=== PATIENT | male | born 1995 | race Caucasian/White ===

== ENCOUNTER 2018-02-09 15:37 | Emergency (ER) | payer OTHER ==
[2018-02-09 18:39] LABS: BUN Blood Urea Nitrogen 13 mg/dL (7-18); Bicarbonate 32 mmol/L (21-32); Glucose Level 90 mg/dL (74-106); Potassium 3.6 mmol/L (3.5-5.1); Sodium Level 139 mmol/L (136-145)
[2018-02-09] MEDS ORDERED: DEXAMETHASONE 10 MG/ML VIAL ONE (18:43)
--- NOTE | 2018-02-09 19:16 | RAD REPORT ---
EXAM DESCRIPTION: CT - Soft Tissue Neck W/Contr CLINICAL HISTORY: peritonsillar abscess Pain and swelling COMPARISON: None TECHNIQUE All CT scans are performed using dose optimization technique as appropriate and may includ e automated exposure control or mA/KV adjustment according to patient size. FINDINGS: Nasopharyngeal tissues are normal in appearance. Fossa Rosenmller are normal. Parapharyngeal fat triangles are symmetric. Both palatine tonsils appear prominent in size, greater o n the right. A peritonsillar abscess is not identified. Epiglottis and aryepiglottic folds are normal. The left piriform sinus appears under aerated. The vocal cords are normal in appearance. Salivary glands are normal in appearance. Several mildly prominent jugular chain lymph nodes are present and posterior triangle lymph nodes are present, suspected to be reactive in nature. Mild polypoid mucosal thickening of both maxillary antr a seen. IMPRESSION: Significant enlargement of the palatine tonsils is present, greater on the right. A lu tonsillar abscess is not seen.
--- NOTE | 2018-02-09 19:30 | EDPHYS ---
Physician Documentation [facility] Name: Rashaun Posey Age: 22 yrs Sex: Male : 1995 Arrival Date: 02/09/2018 Time: 15:40 Bed 20 Private MD: None, None ED Physician Saturnino Aguayo HPI: 02/09 17:00 This 22 yrs old Male presents to ER via Ambulatory with complaints of Sore pm1 Throat. 17:00 The patient presents with sore throat. The patient describes throat pain as constant. pm1 Onset: The symptoms/episode began/occurred this morning. Severity of symptoms: in the emergency department the symptoms are actually worse. Modifying factors: The symptoms are alleviated by nothing, the symptoms are aggravated by swallowing, Patient's oral intake status: good unaware of sick contact. Associated signs and symptoms: Pertinent positives: fever, Pertinent negatives cough. Historical: - Allergies: 16:00 NKA; iw - Home Meds: 16:00 None [Active]; iw - PMHx: 16:00 None; iw - PSHx: 16:00 Appendectomy; iw - Immunization history:: Adult Immunizations not up to date. - Social history:: Smoking status: Patient/guardian denies using tobacco. - Ebola Screening: : Patient negative for fever greater than or equal to 101.5 degrees Fahrenheit, and additional compatible Ebola Virus Disease symptoms Patient denies exposure to infectious person Patient denies travel to an Ebola-affected area in the 21 days before illness onset No symptoms or risks identified at this time. ROS: 17:00 Eyes: Negative for injury, pain, redness, and discharge. pm1 17:00 Neck: Negative for injury, pain, and swelling, Cardiovascular: Negative for chest pain, palpitations, and edema, Respiratory: Negative for shortness of breath, cough, wheezing, and pleuritic chest pain, Abdomen/GI: Negative for abdominal pain, nausea, vomiting, diarrhea, and constipation, Back: Negative for injury and pain, : Negative for injury, bleeding, discharge, and swelling, MS/Extremity: Negative for injury and deformity, Skin: Negative for injury, rash, and discoloration, Neuro: Negative for headache, weakness, numbness, tingling, and seizure. 17:00 Constitutional: Positive for fever, Negative for poor PO intake. 17:00 ENT: Positive for sore throat, Negative for ear pain, difficulty swallowing, difficulty handling secretions. Exam: 17:00 Constitutional: This is a well developed, well nourished patient who is awake, alert, pm1 and in no acute distress. Head/Face: Normocephalic, atraumatic. Eyes: Pupils equal round and reactive to light, extra-ocular motions intact. Lids and lashes normal. Conjunctiva and sclera are non-icteric and not injected. Cornea within normal limits. Periorbital areas with no swelling, redness, or edema. 17:00 Neck: Trachea midline, no thyromegaly or masses palpated, and no cervical lymphadenopathy. Supple, full range of motion without nuchal rigidity, or vertebral point tenderness. No Meningismus. Chest/axilla: Normal chest wall appearance and motion. Nontender with no deformity. No lesions are appreciated. Cardiovascular: Regular rate and rhythm with a normal S1 and S2. No gallops, murmurs, or rubs. Normal PMI, no JVD. No pulse deficits. Respiratory: Lungs have equal breath sounds bilaterally, clear to auscultation and percussion. No rales, rhonchi or wheezes noted. No increased work of breathing, no retractions or nasal flaring. Abdomen/GI: Soft, non-tender, with normal bowel sounds. No distension or tympany. No guarding or rebound. No evidence of tenderness throughout. Back: No spinal tenderness. No costovertebral tenderness. Full range of motion. Skin: Warm, dry with normal turgor. Normal color with no rashes, no lesions, and no evidence of cellulitis. MS/ Extremity: Pulses equal, no cyanosis. Neurovascular intact. Full, normal range of motion. 17:00 ENT: External ear(s): are unremarkable, Ear canal(s): are normal, TM's: are normal, Nose: is normal, Mouth: is normal, Posterior pharynx: Airway: normal, no evidence of obstruction, patent, Tonsils: bilaterally enlarged, with erythema, no exudate, no ulcerations, peritonsillar mass, is not appreciated, pooling of secretions, is not appreciated. 17:00 Neuro: Orientation: is normal, Motor: is normal, Sensation: is normal, Gait: is steady, at a normal pace, without difficulty. Vital Signs: 16:00 BP 159 / 90; Pulse 106; Resp 18; Temp 99.3(TE); Pulse Ox 98% on R/A; Weight 119.29 kg; iw Height 5 ft. 9 in. (175.26 cm); Pain 6/10; 18:45 BP 138 / 78; Pulse 87; Resp 18; Pulse Ox 99% on R/A; mh5 19:45 BP 132 / 76; Pulse 102; Resp 16; Temp 99.2(O); Pulse Ox 100% on R/A; bs1 20:20 BP 125 / 86; Pulse 93; Resp 16; Temp 99.2(O); Pulse Ox 99% on R/A; bs1 16:00 Body Mass Index 38.84 (119.29 kg, 175.26 cm) iw MDM: 17:33 Patient medically screened. pm1 19:29 Data reviewed: vital signs. Data interpreted: Pulse oximetry: on room air is 99 %. pm1 Interpretation: normal. Counseling: I had a detailed discussion with the patient and/or guardian regarding: the historical points, exam findings, and any diagnostic results supporting the discharge/admit diagnosis. 19:30 ED course: improvement of symptoms with decadron given. pm1 02/09 17:36 Order name: BMP; Complete Time: 18:47 pm1 02/09 19:29 Order name: Strep; Complete Time: 22:39 pm1 02/09 16:05 Order name: CT Soft Tissue Neck W/contr; Complete Time: 19:17 snw 02/09 20:32 Order name: Throat Culture EDAZ 02/09 17:36 Order name: IV Saline Lock; Complete Time: 18:23 pm1 Administered Medications: 18:40 Drug: Decadron - Dexamethasone 10 mg Route: IVP; Site: right antecubital; iw 19:54 Follow up: Response: No adverse reaction bs1 19:44 Drug: Bicillin L-A 1.2 million units Route: IM; Site: right gluteus; bs1 19:54 Follow up: Response: No adverse reaction bs1 Disposition: 02/10 15:18 Co-signature as Attending Physician, Saturnino Aguayo MD I agree with the assessment and kdr plan of care. Disposition: 02/09/18 19:29 Discharged to Home. Impression: Acute pharyngitis. - Condition is Stable. - Discharge Instructions: Pharyngitis, Salt Water Gargle. - Medication Reconciliation Form, Thank You Letter, Antibiotic Education form. - Follow up: Emergency Department; When: As needed; Reason: Worsening of condition. Follow up: Private Physician; When: 2 - 3 days; Reason: Recheck today's complaints, Continuance of care, Re-evaluation by your physician. - Problem is new. - Symptoms have improved. Signatures: Dispatcher [employer] EDMS Saturnino Aguayo MD MD [facility] Adelina Coffman RN RN iw Sai Lazar NP CUSTOMER SERVICE DISPATCHER pm1 Gillian Posadas RN RN bs1 Corrections: (The following items were deleted from the chart) 02/09 20:53 19:29 02/09/2018 19:29 Discharged to Home. Impression: Acute pharyngitis. Condition is bs1 Stable. Forms are Medication Reconciliation Form, Thank You Letter, Antibiotic Education, Prescription Opioid Use. Follow up: Emergency Department; When: As needed; Reason: Worsening of condition. Follow up: Private Physician; When: 2 - 3 days; Reason: Recheck today's complaints, Continuance of care, Re-evaluation by your physician. Problem is new. Symptoms have improved. pm1
--- NOTE | 2018-02-09 19:30 | ER ---
Nurse's Notes [facility] Name: Rashaun Posey Age: 22 yrs Sex: Male : 1995 Arrival Date: 02/09/2018 Time: 15:40 Bed 20 Private MD: None, None Diagnosis: Acute pharyngitis Presentation: 02/09 15:57 Presenting complaint: Patient states: throat is swollen on right side, getting hard to iw swallow, started this morning, feels fatigued, denies n/v/d, strep was negative today at [facility],sent yo ER for possible peritonsillar abscess. Transition of care: patient was not received from another setting of care. Onset of symptoms was February 09, 2018. Risk Assessment: Do you want to hurt yourself or someone else? Patient reports no desire to harm self or others. Initial Sepsis Screen: Does the patient meet any 2 criteria? No. Patient's initial sepsis screen is negative. Does the patient have a suspected source of infection? No. Patient's initial sepsis screen is negative. Care prior to arrival: None. 15:57 Method Of Arrival: Ambulatory 15:57 Acuity: YANCY 4 iw Historical: - Allergies: 16:00 NKA; iw - Home Meds: 16:00 None [Active]; iw - PMHx: 16:00 None; iw - PSHx: 16:00 Appendectomy; iw - Immunization history:: Adult Immunizations not up to date. - Social history:: Smoking status: Patient/guardian denies using tobacco. - Ebola Screening: : Patient negative for fever greater than or equal to 101.5 degrees Fahrenheit, and additional compatible Ebola Virus Disease symptoms Patient denies exposure to infectious person Patient denies travel to an Ebola-affected area in the 21 days before illness onset No symptoms or risks identified at this time. Screenin:56 Abuse screen: Denies threats or abuse. Denies injuries from another. Nutritional bs1 screening: No deficits noted. Tuberculosis screening: No symptoms or risk factors identified. Fall Risk None identified. Assessment: 16:00 General: Appears in no apparent distress. comfortable, well groomed, well developed, sg well nourished, Behavior is calm, cooperative, appropriate for age. Pain: Pain: Complains of pain in right side of throat. 16:00 Neuro: No deficits noted. Cardiovascular: Heart tones S1 S2 present Capillary refill is sg brisk in bilateral fingers Patient's skin is warm and dry. Chest pain is denied. Respiratory: Airway is patent Respiratory effort is even, unlabored, Respiratory pattern is regular, symmetrical. GI: No signs and/or symptoms were reported involving the gastrointestinal system. : No deficits noted. 16:00 EENT: Throat is reddened bilaterally. Derm: Skin is pink, warm \T\ dry. Musculoskeletal: sg No signs and/or symptoms reported regarding the musculoskeletal system. 19:05 Reassessment: Report received from YUMIKO Vang. bs1 19:05 General: Appears in no apparent distress. comfortable, well groomed, Behavior is calm, bs1 cooperative, appropriate for age. Pain: Complains of pain in throat. Neuro: Level of Consciousness is awake, alert, obeys commands. Cardiovascular: Denies chest pain, shortness of breath, Heart tones S1 S2 present Capillary refill < 3 seconds is brisk in bilateral fingers Patient's skin is warm and dry. Respiratory: Airway is patent Respiratory effort is even, unlabored, Breath sounds are clear bilaterally. GI: No signs and/or symptoms were reported involving the gastrointestinal system. : No signs and/or symptoms were reported regarding the genitourinary system. EENT: Throat is reddened bilaterally. Derm: Skin is pink, warm \T\ dry. normal. Musculoskeletal: No signs and/or symptoms reported regarding the musculoskeletal system. 20:30 Reassessment: Patient appears in no apparent distress at this time. Patient and/or bs1 family updated on plan of care and expected duration. Pain level reassessed. Patient is alert, oriented x 3, equal unlabored respirations, skin warm/dry/pink. Vital Signs: 16:00 BP 159 / 90; Pulse 106; Resp 18; Temp 99.3(TE); Pulse Ox 98% on R/A; Weight 119.29 kg; iw Height 5 ft. 9 in. (175.26 cm); Pain 6/10; 18:45 BP 138 / 78; Pulse 87; Resp 18; Pulse Ox 99% on R/A; mh5 19:45 BP 132 / 76; Pulse 102; Resp 16; Temp 99.2(O); Pulse Ox 100% on R/A; bs1 20:20 BP 125 / 86; Pulse 93; Resp 16; Temp 99.2(O); Pulse Ox 99% on R/A; bs1 16:00 Body Mass Index 38.84 (119.29 kg, 175.26 cm) ED Course: 15:40 Patient arrived in ED. mr 15:40 None, None is Private Physician. mr 16:00 Triage completed. iw 16:00 Arm band placed on. iw 16:19 Radiology exam delayed due to lab results not completed at this time. (BUN/Creatinine) vr IV insertion attempt and/or patient not having appropriate IV at this time. 16:43 Radiology exam delayed due to IV insertion attempt and/or patient not having vr appropriate IV at this time. 17:22 Taj Marks, RN is Primary Nurse. sg 17:30 Silvia El FNP-C is PHCP. snw 17:30 Saturnino Aguayo MD is Attending Physician. snw 17:30 Sai Lazar NP is PHCP. pm1 17:34 Radiology exam delayed due to IV insertion attempt and/or patient not having vm2 appropriate IV at this time. 17:49 Radiology exam delayed due to IV insertion attempt and/or patient not having vr appropriate IV at this time. 18:22 Initial lab(s) drawn, by il, sent to lab. Inserted saline lock: 20 gauge in right 5 antecubital area, using aseptic technique. Blood collected. 18:23 Patient has correct armband on for positive identification. Bed in low position. Call 5 light in reach. Side rails up X 1. Adult w/ patient. Warm blanket given. Pulse ox on. NIBP on. 18:23 BMP Sent. [facility] 18:48 Patient moved to MD via wheelchair. nj 18:54 CT completed. Patient tolerated procedure well. Patient moved back from MD. nj 18:55 CT Soft Tissue Neck W/contr In Process Unspecified. EDMS 19:06 Primary Nurse role handed off by Taj Marks, YUMIKO rg2 19:29 Gillian Posadas, YUMIKO is Primary Nurse. bs1 19:56 No provider procedures requiring assistance completed. bs1 20:52 IV discontinued, bleeding controlled, No redness/swelling at site. Pressure dressing bs1 applied. Administered Medications: 18:40 Drug: Decadron - Dexamethasone 10 mg Route: IVP; Site: right antecubital; iw 19:54 Follow up: Response: No adverse reaction bs1 19:44 Drug: Bicillin L-A 1.2 million units Route: IM; Site: right gluteus; bs1 19:54 Follow up: Response: No adverse reaction bs1 Outcome: 19:29 Discharge ordered by MD. pm1 20:51 Discharged to home ambulatory, with family. bs1 20:51 Condition: stable 20:51 Discharge instructions given to patient, Instructed on discharge instructions, follow up and referral plans. Demonstrated understanding of instructions, follow-up care. 20:53 Patient left the ED. bs1 Signatures: Dispatcher [employer] EDMS Gus Vann 2 Taj Marks RN RN sg Silvia El, MOVIE EXTRA-C MOVIE EXTRA-Csnw Marjan Nguyen Irene, RN Nu aGvin Patrick, KIM DEVELOPMENTAL MATHEMATICS INSTRUCTOR pm1 Yemi Puente Maria [facility] Nu Wright 2 Gillian Posadas RN RN bs1 Corrections: (The following items were deleted from the chart) 19:10 16:00 Pain: sg sg
[2018-02-09] MEDS ORDERED: PEN G BENZ LA 1.2MU/2ML SYRINGE IM ONE (19:40)
[2018-02-09 21:08] VITALS: TEMP 99.2
[2018-02-09 21:10] VITALS: BP 125/86; O2SAT 99
== END 2018-02-09 20:53 | disposition home or self-care (01) ==
LOC: ER 15:37
DX: J02.9 Acute pharyngitis, unspecified (principal)
CPT/HCPCS: 36415; 70491; 80048; 87070; 87081; 96372; 96374; 99284; J0561; J1100; Q9967

== ENCOUNTER 2019-07-05 15:47 | Emergency (ER) | payer OTHER ==
[2019-07-05] MEDS ORDERED: NA CHLORIDE 0.9% 1,000 ML ONE ×2 (16:58→18:54)
[2019-07-05 17:13] LABS: Absolute Lymphocytes (CBC) 1.7 K/uL (0.7-4.9); Basophils % 0.8 % (0-1.3); Hematocrit 42.5 % (39.6-49.0); Lymphocytes % 13.6 % (15.3-44.8); MPV 7.5 fL (7.6-11.3); RBC Red Blood Cell Count 4.89 M/uL (4.33-5.43)
[2019-07-05 17:31] LABS: ALT/SGPT 32 U/L (12-78); AST/SGOT 15 U/L (15-37); Albumin 3.5 g/dL (3.4-5.0); Alkaline Phosphatase 63 U/L (45-117); BUN Blood Urea Nitrogen 9 mg/dL (7-18); Bicarbonate 31 mmol/L (21-32); Bilirubin Direct 0.1 mg/dL (0-0.2); Bilirubin Total 0.5 mg/dL (0.2-1.0); Glucose Level 99 mg/dL (74-106); Lipase 89 U/L (73-393); Potassium 3.8 mmol/L (3.5-5.1); Protein, Total 7.6 g/dL (6.4-8.2); Sodium Level 141 mmol/L (136-145)
[2019-07-05] MEDS ORDERED: CIPROFLOXACIN 400mg IV 400 MG/200 ML BAG IV ONE (18:54)
[2019-07-05 19:13] LABS: Urine Blood NEGATIVE (NEG); Urine Glucose NEGATIVE (NEG); Urine Protein NEGATIVE (NEG); Urine Specific Gravity 1.025 (1.005-1.030); Urine pH 5.5 (5.0-7.0)
--- NOTE | 2019-07-05 20:21 | ER ---
Nurse's Notes [facility] Name: Rashaun Posey Age: 23 yrs Sex: Male : 1995 Arrival Date: 07/05/2019 Time: 15:49 Bed 26 Private MD: Diagnosis: Diarrhea, unspecified;Left sided colitis Presentation: 07/05 16:24 Presenting complaint: Patient states: Diarrhea x 8 days, reports taking Imodium and it jl7 still wont stop. Denies recent travel, denies recent antibiotic use, reports mild intermittent nausea, LLQ sharp abdominal pain x 2 days. Transition of care: patient was not received from another setting of care. Onset of symptoms was June 28, 2019. Risk Assessment: Do you want to hurt yourself or someone else? Patient reports no desire to harm self or others. Initial Sepsis Screen: Does the patient meet any 2 criteria? No. Patient's initial sepsis screen is negative. Does the patient have a suspected source of infection? Yes: Acute abdominal pain. Care prior to arrival: None. 16:24 Method Of Arrival: Ambulatory [facility] 16:24 Acuity: YANCY 3 jl7 Historical: - Allergies: 16:27 NKA; jl7 - Home Meds: 16:27 None [Active]; jl7 - PMHx: 16:27 None; jl7 - PSHx: 16:27 Appendectomy; jl7 - Immunization history:: Adult Immunizations not up to date. - Social history:: Smoking status: Patient/guardian denies using tobacco. - Ebola Screening: : No symptoms or risks identified at this time. Screenin:42 Abuse screen: Denies threats or abuse. Nutritional screening: No deficits noted. aa5 Tuberculosis screening: No symptoms or risk factors identified. Fall Risk None identified. Assessment: 16:40 Reassessment: Patient is alert, oriented x 3, equal unlabored respirations, skin aa5 warm/dry/pink. Pt attempted to provide stool sample at this time. Pt unable. Pt placed back in bed.. 16:42 General: Appears uncomfortable, Behavior is calm, cooperative. Pain: Complains of pain aa5 in left lower quadrant Pain radiates to left low back Pain currently is 7 out of 10 on a pain scale. Quality of pain is described as sharp, Pain began 1 day ago. Is intermittent. Neuro: Level of Consciousness is awake, alert, obeys commands, Oriented to person, place, time, situation. Cardiovascular: Heart tones S1 S2 present Rhythm is regular. Respiratory: Airway is patent Respiratory effort is even, unlabored, Respiratory pattern is regular, symmetrical. GI: Abdomen is round Bowel sounds present X 4 quads. Abd is soft X 4 quads Abdomen is tender to palpation in left lower quadrant Reports diarrhea, since 8 days ago Patient currently denies bloody stool, nausea, vomiting. : Denies burning with urination. EENT: No signs and/or symptoms were reported regarding the EENT system. Derm: Skin is pink, warm \\T\\ dry. Musculoskeletal: Range of motion: intact in all extremities. 17:25 Reassessment: Patient is alert, oriented x 3, equal unlabored respirations, skin aa5 warm/dry/pink. Pt sitting up in bed watching TV. Pt states "I am not nauseated and the pain is okay lying down in bed". Warm blanket provided.. 18:00 Reassessment: Patient is alert, oriented x 3, equal unlabored respirations, skin aa5 warm/dry/pink. Stool sample collected by Shad Rodriguez [facility] and sent to lab. . 18:55 Reassessment: Patient is alert, oriented x 3, equal unlabored respirations, skin aa5 warm/dry/pink. Denies any complaints at this time. Sitting up in bed watching TV.. 19:31 Reassessment: Patient and/or family updated on plan of care and expected duration. Pain aj1 level reassessed. General: Appears in no apparent distress. comfortable, Behavior is calm, cooperative, appropriate for age. Neuro: Level of Consciousness is awake, alert, obeys commands, Oriented to person, place, time, situation. Cardiovascular: Patient's skin is warm and dry. Respiratory: Airway is patent Respiratory effort is even, unlabored, Respiratory pattern is regular, symmetrical. GI: Abdomen is round non-distended, Abd is soft X 4 quads Reports diarrhea. : Denies burning with urination. Derm: Skin is pink, warm \\T\\ dry. normal. Musculoskeletal: Circulation, motion, and sensation intact. 20:56 Reassessment: Patient appears in no apparent distress at this time. Patient is alert, aa1 oriented x 3, equal unlabored respirations, skin warm/dry/pink. Discussed d/c \\T\\ f/u instructions with pt; denies questions or concerns at this time. Ambulatory to lobby with steady gait. Patient states feeling better. Vital Signs: 16:27 BP 133 / 77; Pulse 92; Resp 19 S; Temp 97.9(O); Pulse Ox 99% on R/A; Weight 117.93 kg jl7 (R); Height 5 ft. 9 in. (175.26 cm) (R); Pain 7/10; 17:40 BP 104 / 81; Pulse 96; Resp 18 S; Pulse Ox 100% on R/A; Pain 5/10; aa5 18:55 BP 101 / 81; Pulse 88; Resp 18 S; Temp 98.8(O); Pulse Ox 98% on R/A; Pain 5/10; aa5 19:32 BP 156 / 75; Pulse 90; Resp 18; Pulse Ox 97% on R/A; aj1 16:27 Body Mass Index 38.39 (117.93 kg, 175.26 cm) 7 ED Course: 15:49 Patient arrived in ED. as 15:50 Silvia El FNP-C is PHCP. snw 15:50 Vega Guy MD is Attending Physician. snw 16:26 Triage completed. jl7 16:27 Arm band placed on right wrist. jl7 16:31 Santa Monge, YUMIKO is Primary Nurse. aa5 16:42 Patient has correct armband on for positive identification. Bed in low position. Call aa light in reach. Side rails up X 1. 17:00 Initial lab(s) drawn, by me, sent to lab. Inserted saline lock: 20 gauge in right aa5 antecubital area, using aseptic technique. Blood collected. 17:55 Urine collected: clean catch specimen, clear, courtney colored, Stool sample collected and jp3 sent to lab. 17:55 Patient maintains SpO2 saturation greater than 95% on room air. jp3 18:09 Occult Blood Sent. jp3 18:09 Fecal Leukocyte Stain Sent. jp3 18:09 Stool Culture Sent. jp3 19:07 Report given to YUMIKO Archibald. aa5 20:56 No provider procedures requiring assistance completed. IV discontinued, intact, aa1 bleeding controlled, No redness/swelling at site. Pressure dressing applied. Administered Medications: 17:01 Drug: NS 0.9% 1000 ml Route: IV; Rate: 1 bolus; Site: right antecubital; aa5 18:55 Follow up: IV Status: Completed infusion; IV Intake: 1000ml aa5 17:27 Not Given (Patient Refused): fentaNYL (PF) 25 mcg IVP once; RASS on ADMIN: Combtv4, aa5 Very Agttd3, Agttd2, Rstlss1, AlertClm0, Drwsy-1, Lt Sdtn-2, Mod Sdtn-3, Dp Sdtn-4, UnArsble-5 18:55 Drug: Cipro 400 mg Volume: 200 ml; Route: IVPB; Infused Over: 60 mins; Site: right aa5 antecubital; 18:55 Drug: NS 0.9% 1000 ml Route: IV; Rate: 1 bolus; Site: right antecubital; aa5 Intake: 18:55 IV: 1000ml; Total: 1000ml. aa5 Outcome: 20:20 Discharge ordered by MD. snw 20:56 Discharged to home ambulatory. aa1 20:56 Condition: good 20:56 Discharge instructions given to patient, Instructed on discharge instructions, follow up and referral plans. medication usage, Demonstrated understanding of instructions, follow-up care, medications, Prescriptions given X 2. 20:58 Patient left the ED. aa1 Signatures: Cristela Hendrickson RN RN aj1 Jessica Figueredo RN RN aa1 Silvia El, DIRECTOR OF HEALTH EDUCATION-C DIRECTOR OF HEALTH EDUCATION-Csnw Anca Barrera Audri RN RN aa5 Cal Suh RN RN jl7 Shad Lin jp3 Corrections: (The following items were deleted from the chart) 16:28 16:24 Presenting complaint: Patient states: Diarrhea x 8 days, reports taking Imodium jl7 and it still wont stop. Denies recent travel, denies recent antibiotic use, reports mild intermittent nausea jl7 16:28 16:24 Presenting complaint: Patient states: Diarrhea x 8 days, reports taking Imodium jl7 and it still wont stop. Denies recent travel, denies recent antibiotic use, reports mild intermittent nausea, LLQ sharp abdominal pain x 8 days jl7 17:38 16:42 GI: Abdomen is round Bowel sounds present X 4 quads. Abd is soft X 4 quads aa5 Abdomen is tender to palpation in left lower quadrant Reports diarrhea, Patient currently denies bloody stool, nausea, vomiting, aa5
--- NOTE | 2019-07-05 20:21 | EDPHYS ---
Physician Documentation [facility] Name: Rashaun Posey Age: 23 yrs Sex: Male : 1995 Arrival Date: 07/05/2019 Time: 15:49 Bed 26 Private MD: ED Physician Vega Guy HPI: 07/05 17:13 This 23 yrs old Male presents to ER via Ambulatory with complaints of snw Abdominal Pain, Back Pain, Diarrhea. 17:13 The patient presents with abdominal pain in the left lower quadrant. Onset: The snw symptoms/episode began/occurred suddenly, 1 day(s) ago, and became persistent. The symptoms do not radiate. Associated signs and symptoms: Pertinent positives: diarrhea. The symptoms are described as crampy. Severity of pain: At its worst the pain was moderate. The patient has not experienced similar symptoms in the past, Pt notified his Son has begun having diarrhea with blood today. + Shigella in community recently. Pt has well water. The patient has not recently seen a physician. Historical: - Allergies: 16:27 NKA; jl7 - Home Meds: 16:27 None [Active]; jl7 - PMHx: 16:27 None; jl7 - PSHx: 16:27 Appendectomy; jl7 - Immunization history:: Adult Immunizations not up to date. - Social history:: Smoking status: Patient/guardian denies using tobacco. - Ebola Screening: : No symptoms or risks identified at this time. ROS: 17:13 Constitutional: Negative for fever, chills, and weight loss, Eyes: Negative for injury, snw pain, redness, and discharge, ENT: Negative for injury, pain, and discharge, Neck: Negative for injury, pain, and swelling, Cardiovascular: Negative for chest pain, palpitations, and edema, Respiratory: Negative for shortness of breath, cough, wheezing, and pleuritic chest pain, Back: Negative for injury and pain, : Negative for injury, bleeding, discharge, and swelling, MS/Extremity: Negative for injury and deformity, Skin: Negative for injury, rash, and discoloration, Neuro: Negative for headache, weakness, numbness, tingling, and seizure. 17:13 Abdomen/GI: Positive for abdominal pain, diarrhea, of the left lower quadrant. Exam: 17:09 Constitutional: This is a well developed, well nourished patient who is awake, alert, snw and in no acute distress. Head/Face: Normocephalic, atraumatic. Eyes: Pupils equal round and reactive to light, extra-ocular motions intact. Lids and lashes normal. Conjunctiva and sclera are non-icteric and not injected. Cornea within normal limits. Periorbital areas with no swelling, redness, or edema. ENT: Nares patent. No nasal discharge, no septal abnormalities noted. Tympanic membranes are normal and external auditory canals are clear. Oropharynx with no redness, swelling, or masses, exudates, or evidence of obstruction, uvula midline. Mucous membranes moist. Neck: Trachea midline, no thyromegaly or masses palpated, and no cervical lymphadenopathy. Supple, full range of motion without nuchal rigidity, or vertebral point tenderness. No Meningismus. Chest/axilla: Normal chest wall appearance and motion. Nontender with no deformity. No lesions are appreciated. Cardiovascular: Regular rate and rhythm with a normal S1 and S2. No gallops, murmurs, or rubs. Normal PMI, no JVD. No pulse deficits. Respiratory: Lungs have equal breath sounds bilaterally, clear to auscultation and percussion. No rales, rhonchi or wheezes noted. No increased work of breathing, no retractions or nasal flaring. Back: No spinal tenderness. No costovertebral tenderness. Full range of motion. Skin: Warm, dry with normal turgor. Normal color with no rashes, no lesions, and no evidence of cellulitis. MS/ Extremity: Pulses equal, no cyanosis. Neurovascular intact. Full, normal range of motion. Neuro: Awake and alert, GCS 15, oriented to person, place, time, and situation. Cranial nerves II-XII grossly intact. Motor strength 5/5 in all extremities. Sensory grossly intact. Cerebellar exam normal. Normal gait. Psych: Awake, alert, with orientation to person, place and time. Behavior, mood, and affect are within normal limits. 17:09 Abdomen/GI: Inspection: abdomen appears normal, Bowel sounds: normal, Palpation: moderate abdominal tenderness, in the left lower quadrant. Vital Signs: 16:27 BP 133 / 77; Pulse 92; Resp 19 S; Temp 97.9(O); Pulse Ox 99% on R/A; Weight 117.93 kg jl7 (R); Height 5 ft. 9 in. (175.26 cm) (R); Pain 7/10; 17:40 BP 104 / 81; Pulse 96; Resp 18 S; Pulse Ox 100% on R/A; Pain 5/10; aa5 18:55 BP 101 / 81; Pulse 88; Resp 18 S; Temp 98.8(O); Pulse Ox 98% on R/A; Pain 5/10; aa5 19:32 BP 156 / 75; Pulse 90; Resp 18; Pulse Ox 97% on R/A; aj1 16:27 Body Mass Index 38.39 (117.93 kg, 175.26 cm) jl7 MDM: 15:57 Patient medically screened. snw 20:22 Data reviewed: vital signs, nurses notes. Data interpreted: Pulse oximetry: on room air snw is 97 %. Interpretation: normal. Counseling: I had a detailed discussion with the patient and/or guardian regarding: the historical points, exam findings, and any diagnostic results supporting the discharge/admit diagnosis, the presence of at least one elevated blood pressure reading (>120/80) during this emergency department visit, lab results, the need for outpatient follow up, to return to the emergency department if symptoms worsen or persist or if there are any questions or concerns that arise at home. Special discussion: Based on the patient's Hx, exam, and Dx evaluation, there is no indication for emergent surgery or inpatient Tx. It is understood by the patient/guardian that if the Sx's persist or worsen they need to return immediately for re-evaluation. I discussed in detail with the patient the higher chance of wound infection based on his presenting history. Based on the history and exam findings, there is no indication for further emergent testing or inpatient evaluation. 07/05 16:53 Order name: Occult Blood; Complete Time: 19:23 snw 07/05 16:53 Order name: Fecal Leukocyte Stain snw 07/05 16:53 Order name: Stool Culture snw 07/05 16:53 Order name: Basic Metabolic Panel; Complete Time: 17:39 snw 07/05 16:53 Order name: CBC with Diff; Complete Time: 17:19 snw 07/05 16:53 Order name: Hepatic Function; Complete Time: 17:39 snw 07/05 16:53 Order name: Lipase; Complete Time: 17:39 [facility] 07/05 16:53 Order name: IV Saline Lock; Complete Time: 17:01 [facility] 07/05 16:53 Order name: Labs collected and sent; Complete Time: 17:01 [facility] 07/05 18:16 Order name: Urine Dipstick--Ancillary (enter results); Complete Time: 19:23 em1 Administered Medications: 17:01 Drug: NS 0.9% 1000 ml Route: IV; Rate: 1 bolus; Site: right antecubital; aa5 18:55 Follow up: IV Status: Completed infusion; IV Intake: 1000ml aa5 17:27 Not Given (Patient Refused): fentaNYL (PF) 25 mcg IVP once; RASS on ADMIN: Combtv4, aa5 Very Agttd3, Agttd2, Rstlss1, AlertClm0, Drwsy-1, Lt Sdtn-2, Mod Sdtn-3, Dp Sdtn-4, UnArsble-5 18:55 Drug: Cipro 400 mg Volume: 200 ml; Route: IVPB; Infused Over: 60 mins; Site: right aa5 antecubital; 18:55 Drug: NS 0.9% 1000 ml Route: IV; Rate: 1 bolus; Site: right antecubital; aa5 Disposition: 07/05/19 20:20 Discharged to Home. Impression: Diarrhea, unspecified, Left sided colitis. - Condition is Stable. - Discharge Instructions: Food Choices to Help Relieve Diarrhea, Adult, Diarrhea, Adult, Shigellosis, Adult, Rehydration, Adult. - Prescriptions for Cipro 500 mg Oral Tablet - take 1 tablet by ORAL route every 12 hours for 7 days; 14 tablet. promethazine 25 mg Oral Tablet - take 1 tablet by ORAL route every 6 hours As needed; 20 tablet. - Work release form, Medication Reconciliation Form, Thank You Letter, Antibiotic Education, Prescription Opioid Use form. - Follow up: Emergency Department; When: As needed; Reason: Worsening of condition. Follow up: Private Physician; When: 2 - 3 days; Reason: Recheck today's complaints, Continuance of care, Re-evaluation by your physician. - Problem is new. - Symptoms have improved. Addendum: 07/09/2019 07:26 Co-signature as Attending Physician, Vega Guy MD. r n Signatures: Dispatcher [employer] EDJessica Foss, RN RN aa1 Silvia El, COLLECTION SYSTEMS MODELER-C [employer]LE[employer] SYSTEMS MODELER-Csnw Vega Guy MD MD rn Calderon, Audri RN RN aa5 Cal Suh RN RN jl7 Corrections: (The following items were deleted from the chart) 07/05 20:58 20:20 07/05/2019 20:20 Discharged to Home. Impression: Diarrhea, unspecified; Left aa1 sided colitis. Condition is Stable. Forms are Medication Reconciliation Form, Thank You Letter, Antibiotic Education, Prescription Opioid Use. Follow up: Emergency Department; When: As needed; Reason: Worsening of condition. Follow up: Private Physician; When: 2 - 3 days; Reason: Recheck today's complaints, Continuance of care, Re-evaluation by your physician. Problem is new. Symptoms have improved. snw
[2019-07-05 23:13] VITALS: TEMP 98.8
[2019-07-05 23:15] VITALS: BP 156/75; O2SAT 97
== END 2019-07-05 20:58 | disposition home or self-care (01) ==
LOC: ER 15:47
DX: K51.50 Left sided colitis without complications (principal); R19.7 Diarrhea, unspecified
CPT/HCPCS: 96361; 87045; 85025; 80048; 36415; 89055; 82274; 80076; 87046; 81003; 83690; 96374; 99284; J7030 ×2; J0744

== ENCOUNTER 2021-08-28 19:18 | Emergency (ER) | payer OTHER, SELFPAY ==
--- OUTSIDE RECORDS SUMMARY | 2021-08-28 19:22 | XMS REPORT | Continuity of Care Document ---
:1995 Author Organization [facility] t Address [address] [place] [address] [address]. [address] [place] [address] Care Team Providers Name Role Phone Todd DUNN Attending Clinician Problems Condition Condition Condition Status Onset Resolution Last Treating Co mments Source Name Details Category Date Date Treatment Clinician Date No known No known Disease Unive rs active active ity of problems problems [facility] Allergies, Adverse Reactions, Alerts Allergy Allergy Status Severity Reaction(s) Onset Inactive Treating Comm ents Source Name Type Date Date Clinician NO KNOWN Drug Active Univers ALLERGIE Class ity of S [facility] Social History Social Habit Start Date Stop Date Quantity Comments Source Exposure to Not sure [facility] SARS-CoV-2 (event) [facility] Sex Assigned At [birth year] [facility] 00:00:00 00:00:00 [facility] Smoking Status Start Date Stop Date Source Unknown if ever smoked [facility] Medications Ordered Filled Start Stop Current Ordering Indication Dosage Frequency Signature Comments Components Source Medication Medication Date Date Medication? Clinician (SIG) Name Name iohexol 2020- No [id number] 120mL 120 mL, Univers (OMNIPAQUE 11-01 Intravenou it y of 350 04:15: 03:50 s, ONCE, 1 [place] BULK-150 00 :00 dose, Fri Medica l mL) 10/31/20 at [facility] injection 2315, 120 mL Routine acetaminoph 2020- No 1000mg 1,000 mg, Univers en 11-01 Oral, ity of (TYLENOL) 03:45: 03:03 ONCE, [place] tablet [place] :00 dose, Fri Medical 1,000 mg 10/31/20 at [facility] 2245, Routine ketorolac 2020- No 30mg 30 mg, Unive rs (TORADOL) 11-01 Slow IV ity of injection 03:45: 02:45 Push, [place] 30 mg 00 :00 ONCE, 1 Medical dose, Fri Branch 10/31/20 at 2245, ELISEO
[facility] member approving Restricted medication : EMERGENCY ROOM, ondansetron 2020- No 8mg 8 mg, Slow Univers (ZOFRAN 11-01 IV Push, ity of (PF)) 03:45: 02:43 ONCE, 1 [place] injection 8 00 :00 dose, Fri Med ical mg 10/31/20 at Branch 2245, ELISEO NaCl 0.9% No 2000mL at 999 Uni vers (NS) bolus 11-01 mL/hr, ity of infusion 02:45: 05:15 2,000 mL, Gild[place] as 2,000 mL 00 :00 IV Medical Infusion, Branch ONCE, 1 dose, 10/31/20 at 2145, ELISEO dicyclomine Yes [id number] 20mg Take 1 Univers 20 mg 4-03 tablet by ity of tablet 00:00: mouth 4 [place] 00 (four) Medical times Branch daily as needed for Abdominal pain. ondansetron Yes [id number] 4mg Take 1 Univers (ZOFRAN 4-03 tablet by ity of ODT) 4 mg 00:00: mouth [place] disintegrat 00 every 8 Medic al ing tablet (eight) Branch hours as needed for Nausea and Vomiting (N/V). Vital Signs Vital Name Observation Time Observation Value Comments Source Systolic blood 2020-11-01 105 mm[Hg] University of pressure 05:47:00 [facility] Diastolic blood 2020-11-01 61 mm[Hg] University o f pressure 05:47:00 [facility] Heart rate 2020-11-01 86 /min Simultaneous [facility] 05:47:00 filing. User may [place] [facility] not have seen [facility] previous data. Body temperature 2020-11-01 36.44 [place] [facility] 05:47:00 [facility] Respiratory rate 2020-11-01 15 /min Simultaneous [facility] 05:47:00 filing. User may [place] [facility] not have seen [facility] previous data. Oxygen saturation 2020-11-01 96 /min Simultaneous [facility] in Arterial blood 05:47:[address] [facility] by Pulse oximetry not have seen Branch previous data. Body weight 2020-11-01 120.203 kg [facility] 02:25:00 [facility] Procedures Procedure Date / Time Performed Performing Clinician Sourmaya e LACTIC ACID WHOLE 2020-11-01 05:13:00 Irene Brooks [facility] BLOOD [facility] CT ABDOMEN PELVIS W 2020-11-01 03:59:31 Irene Brooks [facility] CONTRAST [facility] Branch URINALYSIS 2020-11-01 03:29:00 Todd [facility] LIPASE 2020-11-01 02:41[facility] 2020-11-01 02:41:00 Brooks, [facility] ([id number]) Medical [place] (ALB,T.PRO,BILI T,BU/BC,ALT,AST,ALK PHOS) BASIC METABOLIC PANEL 2020-11-01 02:41:00 [facility] (NA, K, CL, CO2, Medical Branch GLUCOSE, BUN, CREATININE, CA) CBC WITH DIFF 2020-11-01 02:41:00 Todd [facility] COVID-19 (ID NOW RAPID 2020-11-01 02:41[facility] Medical Branch LACTIC ACID WHOLE 2020-11-01 02:40:00 Todd Irene [facility] NOTICE OF PRIVACY 2020-11-01 02:05:47 Doctor Unassigned, No [facility] PRACTICES Name Medical Branch Encounters Start End Encounter Admission Attending Care Care Encounter Source Date/Time Date/Time Type Type Clinicians Facility Department ID 2020-10-31 2020-11-01 Emergency Todd [facility] [id number] Univers 21:26:00 00:55:00 Irene Pearl [id number] i ty of [employer] [id number] [facility] [id number] [facility] jackie 084 Branch 2020-10-31 2020-10-31 Emergency X [facility] ERT [id number] Univers 21:06:00 21:06:00 [facility] Results Test Description Test Time Test Comments Results Result Comments Source Lactic Acid Whole Blood 2020-11-01 05:22:40 Test Item Value Reference Range Interpretation Comme nts LACTIC ACID (test code = 9969549930) 1.00 mmol/L 0.50-2.20 Lab Interpretation (test code = 54395-8) [facility] 04:12[facility]59 Test Item Value Reference Range Interpretation Comments APPEARANCE (test code = Clear Clear 8869572646) COLOR (test code = Yellow Yellow 6158197656) PH (test code = 4.8-8.0 9249781946) SP GRAVITY (test code = 1.003-1.030 H 4261798432) GLU U QUAL (test code = Normal Normal 0637685475) BLOOD (test code = Negative Negative 4498430678) KETONES (test code = Negative Negative 6049580897) PROTEIN (test code = Negative Negative 2887-8) UROBILIN (test code = 4.0 mg/dL Normal A 6532251525) BILIRUBIN (test code = Negative Negative 8824433213) NITRITE (test code = Negative Negative 4052280210) LEUK DIDI (test code = Negative Negative 8335959080) RBC/HPF (test code = <1 See_Comment [Autom ated message] 8399295381) The system [employer] generated this result transmit bhupendra reference range : 0 - 3 HPF. The refe rence range was not u sed to interpret th is result as normal/abnormal . WBC/HPF (test code = See_Comment [Autom ated message] 7758952905) The system [employer] generated this result transmit bhupendra reference range : 0 - 5 HPF. The refe rence range was not u sed to interpret th is result as normal/abnormal . BACTERIA (test code = Few Negative A 7638591291) MUCOUS (test code = Slight Negative LPF A 2643186603) SQ EPITH (test code = <1 HPF 9823637044) Lab Interpretation (test Abnormal code = 87418-9) [facility] NOW RAPID TESTING)2020-11-01 03:17:39 Test Item Value Reference Range Interpretation Comments SARS-CoV-2 Rapid ID NOW Not Detected Not Detected (test code = 94608-0) ELEANOR (test code = ELEANOR) ID NOW COVID-19 Assay is an isothermal nucleic acid amplification test intended for the qualitative detection of nucleic acid from SARS-CoV-2 viral RNA in nasopharyngeal ([employer]ER[employer]) specimens. It is used under Emergency Use Authorization (EUA) by FDA. The limit of detection (LOD) of the assay is 125 Genome Equivalents/mL. A positive result is indicative of the presence of SARS-CoV-2 RNA. ?Clinical correlation with patient history and other diagnostic information is necessary to determine patient infection status. A negative (Not Detected) result does not preclude SARS-CoV-2 infection. In patients with clinical symptoms and other tests that are consistent with SARS-CoV-2 infection, negative results should be treated as presumptive negative and a new specimen should be tested with alternative PCR molecular test. Invalid: Please collect a new specimen for repeat patient testing if clinically indicated. Lab Interpretation Normal (test code = 92136-5) [facility] Metabolic Panel (NA, K, CL, CO2, GLUCOSE, BUN, CREATININE, CA)2020-11-01 03:03:36 Test Item Value Reference Range Interpretation Comments NA (test code = 135 mmol/L 135-145 6524411521) K (test code = 3.6 mmol/L 3.5-5.0 7349569315) CL (test code = 103 mmol/L 98-108 9248655911) CO2 TOTAL (test code 25 mmol/L 23-31 = 1477863758) AGAP (test code = 2-16 8698679614) BUN (test code = 15 mg/dL 7-23 5541640501) GLUCOSE (test code = 105 mg/dL 70-110 1132922546) CREATININE (test code 0.82 mg/dL 0.60-1.25 = 7494020019) CALCIUM (test code = 8.8 mg/dL 8.6-10.6 8428553374) eGFR (test code = mL/min/1.73m2 8708806497) ELEANOR (test code = ELEANOR) Association of Glomerular Filtration Rate (GFR) and Staging of Kidney Disease* + + +- +| GFR (mL/min/1.73 m2) ?| With Kidney Damage ?| ?Without Kidney Damage+ ------+ ----+ ------+| ?>90 ?| ?Stage one ?| ? Normal ?+ -+ + -+| ?60-89 ?| ?Stage two ?| ? Decreased GFR ? + + +- +| ?30-59 ?| ?Stage three ?| ? Stage three ? + + +- +| ?15-29 ?| ?Stage four ? | ? Stage four ?+ -+ + -+| ?<15 (or dialysis) ? ?| ?Stage five ? | ? Stage five ?+ -+ + -+ *Each stage assumes the associated GFR level has been in effect for at least three months. ?Stages 1 to 5, with or without kidney disease, indicate chronic kidney disease. Notes: Determination of stages one and two (with eGFR >59mL/min/1.73 m2) requires estimation of kidney damage for at least three months as defined by structural or functional abnormalities of the kidney, manifested by either:Pathological abnormalities or Markers of kidney damage (including abnormalities in the composition of the blood or urine or abnormalities in imaging tests). [facility] (ALB, T.PRO, BILI T, BU/BC, ALT, AST, ALK PHOS)2020-11-01 03:03:36 Test Item Value Reference Range Interpretation Comments TOTAL BILI (test code = 8937206589) 1.5 mg/dL 0.1-1.1 H BILI UNCON (test code = 5802199824) 1.4 mg/dL 0.1-1.1 H BILI CONJ (test code = 0931136088) 0.0 mg/dL 0.0-0.3 T PROTEIN (test code = 7241506930) 7.1 g/dL 6.3-8.2 ALBUMIN (test code = 3666280553) 4.2 g/dL 3.5-5.0 ALK PHOS (test code = 7524852910) 52 U/L 34-122 ALTv (test code = 1742-6) 24 U/L 5-50 AST(SGOT) (test code = 8667273557) 27 U/L 13-40 Lab Interpretation (test code = Abnormal 82712-6) [facility] [id number] 03:03:36 Test Item Value Reference Range Interpretation Comments LIPASE (test code = 2863292638) 26 U/L 0-220 Lab Interpretation (test code = Normal 76335-1) [facility] with [id number] 02:52:36 Test Item Value Reference Range Interpretation Comments WBC (test code = See_Comment H [Automated 5590-2) message] The system which generated this result transmit bhupendra reference range : 4.20 - 10.70 10*3/?L. The reference range was not used to interpret this result as normal/abnormal . RBC (test code = See_Comment [Automated 789-8) message] The system which generated this result transmit bhupendra reference range : 4.26 - 5.52 10*6/?L. The reference range was not used to interpret this result as normal/abnormal . HGB (test code = 14.2 g/dL 12.2-16.4 718-7) HCT (test code = 42.2 % 38.4-49.3 4544-3) MCV (test code = 86.5 fL 81.7-95.6 787-2) MCH (test code = 29.1 pg 26.1-32.7 785-6) MCHC (test code = 33.6 g/dL 31.2-35.0 786-4) RDW-SD (test code = 41.2 fL 38.5-51.6 03369-7) RDW-CV (test code = 13.2 % 12.1-15.4 788-0) PLT (test code = See_Comment [Automated 777-3) message] The system which generated this result transmit bhupendra reference range : 150 - 328 10*3/ ?L. The reference range was not u sed to interpret th is result as normal/abnormal . MPV (test code = 9.8 fL 9.8-13.0 00364-2) NRBC/100 WBC (test See_Comment [Automat ed code = 0560849064) message] The system which generated this result transmit bhupendra reference range : 0.0 - 10.0 /100 WBCs. The reference range was not used to interpret this result as normal/abnormal . NRBC x10^3 (test code <0.01 See_Comment [Auto mated = 2621505732) message] The system which generated this result transmit bhupendra reference range : 10*3/?L. The reference range was not used to interpret this result as normal/abnormal . GRAN MAT (NEUT) % 88.0 % (test code = 770-8) IMM GRAN % (test code 0.70 % = 1737860630) LYMPH % (test code = 5.4 % 736-9) MONO % (test code = 5.4 % 5905-5) EOS % (test code = 0.1 % 713-8) BASO % (test code = 0.4 % 706-2) GRAN MAT x10^3(ANC) 13.18 10*3/uL 1.99-6.95 H (test code = 7492279564) IMM GRAN x10^3 (test 0.10 10*3/uL 0.00-0.06 H code = 8291950070) LYMPH x10^3 (test code 0.81 10*3/uL 1.09-3.23 L = 731-0) MONO x10^3 (test code 0.81 10*3/uL 0.36-1.02 = 742-7) EOS x10^3 (test code = <0.03 0.06-0.53 L 711-2) BASO x10^3 (test code 0.06 10*3/uL 0.01-0.09 = 704-7) Lab Interpretation Abnormal (test code = 34881-8) [facility] Whole [id number] 02:48:33 Test Item Value Reference Range Interpretation Comments LACTIC ACID (test code = 2.37 mmol/L 0.50-2.20 H 1120301416) Lab Interpretation (test code = Abnormal 12679-6) [facility]"
--- NOTE | 2021-08-28 20:52 | RAD REPORT ---
EXAM DESCRIPTION: Milan James (2 Views)08/28/2021 7:58 pm CLINICAL HISTORY: sob COMPARISON: None FINDINGS: The lungs appear clear of acute infiltrate. The heart is normal size IMPRESSION: No acute abnormalities displayed
[2021-08-28] MEDS ORDERED: KETOROLAC 30 MG/ML INJ ONE (21:19)
--- NOTE | 2021-08-28 22:00 | RAD REPORT ---
EXAM DESCRIPTION: CTSpine Lumbar Wo Con08/28/2021 9:42 pm CLINICAL HISTORY: Numbness COMPARISON: None TECHNIQUE: Computed axial tomography lumbar spine was obtained with coronal and sagittal reconstruct ion. All CT scans are performed using dose optimization technique as appropriate and may include automated exposure control or mA/KV adjustment according to patient size. FINDINGS: No fracture is seen. No dislocation Small disc bulges at L3-4. Thecal sac measures approximately 7 millimeters. Disc bulge L4-5. Thecal sac appears to measure approximately 6 millimeters. Mild spondylosis L5-S1. IMPRESSION: Negative for a lumbar fracture. Appears to be mild to moderate central spinal stenosis L3-4 and and moderate central spinal stenosis L4-5. There probably is a congenital component. It is recommended that the patient have an MRI for fu rther evaluation
--- NOTE | 2021-08-28 22:39 | ER ---
Nurse's Notes [facility] Name: Rashaun Posey Age: 26 yrs Sex: Male : 1995 Arrival Date: 08/28/2021 Time: 19:20 Bed 5 Private MD: Diagnosis: SARS-associated coronavirus as the cause of diseases classified elsewhere;Low back pain;Radiculopathy, lumbar region Presentation: 08/28 19:33 Chief complaint: Patient states: difficulty breathing and fever started hour ago, and sf1 fever has been all day. Patient took a motrin at 430pm and took tylenol at 1130. Coronavirus screen: Vaccine status: Patient reports being unvaccinated. Client denies travel out of the [place] in the last 14 days. Ebola Screen: Patient negative for fever greater than or equal to 101.5 degrees Fahrenheit, and additional compatible Ebola Virus Disease symptoms Patient denies exposure to infectious person. Patient denies travel to an Ebola-affected area in the 21 days before illness onset. Initial Sepsis Screen: Does the patient meet any 2 criteria? HR > 90 bpm. No. Patient's initial sepsis screen is negative. Does the patient have a suspected source of infection? No. Patient's initial sepsis screen is negative. Risk Assessment: Do you want to hurt yourself or someone else? Patient reports no desire to harm self or others. Onset of symptoms was August 28, 2021 at 08:00. 19:33 Method Of Arrival: Wheelchair sf1 19:33 Acuity: YANCY 3 sf1 Triage Assessment: 19:36 General: Appears in no apparent distress. uncomfortable, obese, Behavior is calm, sf1 cooperative, appropriate for age. Pain: Complains of pain in left low back and right low back. Respiratory: Reports shortness of breath at rest Airway is patent Breath sounds are clear bilaterally. Onset: The symptoms/episode began/occurred today, the patient has moderate shortness of breath. Historical: - Allergies: 19:36 NKA; sf1 - Home Meds: 19:36 None [Active]; sf1 - PSHx: 19:36 Appendectomy; sf1 - Immunization history:: Adult Immunizations unknown, Flu vaccine is not up to date. - Social history:: Smoking status: Patient denies any tobacco usage or history of. Patient/guardian denies using alcohol, street drugs. Screenin:02 Abuse screen: Denies threats or abuse. Denies injuries from another. Nutritional sm5 screening: No deficits noted. Tuberculosis screening: No symptoms or risk factors identified. Fall Risk None identified. Assessment: 21:01 General: Appears in no apparent distress. Behavior is cooperative. Pain: Complains of sm5 pain in back and right low back and left low back. Neuro: No deficits noted. Level of Consciousness is awake, alert, Oriented to person, place, time, situation. Neuro: Reports numbness in right arm, left arm, right leg and left leg paresthesias in right arm, left arm, right leg and left leg. Cardiovascular: Capillary refill < 3 seconds Patient's skin is warm and dry. Rhythm is sinus rhythm. Respiratory: Airway is patent Trachea midline Respiratory effort is even, labored. : Denies burning with urination, inability to void, urinary frequency. 22:03 Reassessment: No changes from previously documented assessment. 5 Vital Signs: 19:33 BP 100 / 86; Pulse 106; Resp 22; Temp 99.0(T); Pulse Ox 98% on R/A; Weight 127.01 kg; sf1 Height 5 ft. 9 in. (175.26 cm); Pain 7/10; 21:04 BP 108 / 77; Pulse 98; Resp 24; Temp 99.6(O); Pulse Ox 98% on R/A; sm5 22:59 BP 114 / 64; Pulse 97; Resp 19; Pulse Ox 98% on R/A; sm5 19:33 Body Mass Index 41.35 (127.01 kg, 175.26 cm) sf1 ED Course: 19:20 Patient arrived in ED. kc5 19:36 Triage completed. sf1 19:36 Arm band placed on Patient ekg performed. EKG completed in triage. Results shown to MD. sf1 19:59 XRAY Chest Pa And Lat (2 Views) In Process Unspecified. EDMS 20:42 Derrek Lord PA is PHCP. cp 20:42 Devyn Nguyen MD is Attending Physician. cp 20:44 Kayleen Peoples, RN is Primary Nurse. ww 20:45 Yoly Felder, RN is Primary Nurse. sm5 21:42 CT Lumbar Spine Wo Con In Process Unspecified. EDMS 22:36 Marry, Cesario, MD is Referral Physician. cp 22:59 Patient has correct armband on for positive identification. Placed in gown. Bed in low sm5 position. Call light in reach. Side rails up X2. 22:59 No provider procedures requiring assistance completed. Patient did not have IV access sm5 during this emergency room visit. Administered Medications: 21:21 Drug: Ketorolac 60 mg Route: IM; Site: right deltoid; sm5 23:00 Follow up: Response: Pain is decreased sm5 Outcome: 22:38 Discharge ordered by MD. cp 23:00 Discharged to home ambulatory, with family. sm5 23:00 Condition: stable 23:00 Discharge instructions given to patient, family, Instructed on discharge instructions, follow up and referral plans. no drinking with medication, no driving heavy equipment, medication usage, Demonstrated understanding of instructions, follow-up care, medications, Prescriptions given X 4. 23:00 Patient left the ED. sm5 Signatures: Dispatcher [employer] EDDE Derrek Lord PA PA Jennifer Mirza kc5 Yoly Felder RN RN sm5 Kayleen Peoples RN YUMIKO ww Arminda Lockwood RN RN sf1
--- NOTE | 2021-08-28 22:39 | EDPHYS ---
Physician Documentation [facility] Name: Rashaun Posey Age: 26 yrs Sex: Male : 1995 Arrival Date: 08/28/2021 Time: 19:20 Bed 5 Private MD: ED Physician Devyn Nguyen HPI: 08/28 21:00 This 26 yrs old Male presents to ER via Wheelchair with complaints of Breathing cp Difficulty, Fever, General Weakness. 21:00 The patient presents with pain that is acute, with no known mechanism of injury. The cp symptoms are located in the low back. 21:00 Onset: The symptoms/episode began/occurred yesterday. Associated signs and symptoms: cp Pertinent positives: weakness, numbness of left leg and right leg, Pertinent negatives: abdominal pain, chest pain, constipation, hematuria, incontinence, urinary retention. The patient has shortness of breath with light activity. Patient denies cough. Historical: - Allergies: 19:36 NKA; sf1 - Home Meds: 19:36 None [Active]; sf1 - PSHx: 19:36 Appendectomy; sf1 - Immunization history:: Adult Immunizations unknown, Flu vaccine is not up to date. - Social history:: Smoking status: Patient denies any tobacco usage or history of. Patient/guardian denies using alcohol, street drugs. ROS: 21:05 Constitutional: Positive for body aches, Negative for fever, poor PO intake. cp 21:05 Eyes: Negative for injury, pain, redness, and discharge. cp 21:05 ENT: Negative for drainage from ear(s), ear pain, difficulty swallowing, difficulty handling secretions. 21:05 Cardiovascular: Negative for chest pain. 21:05 Respiratory: Positive for shortness of breath, Negative for cough, wheezing. 21:05 Abdomen/GI: Negative for abdominal pain, vomiting, diarrhea, constipation, bowel incontinence. 21:05 Back: Positive for pain at rest, pain with movement, of the low back. 21:05 : Negative for urinary symptoms, bladder incontinence. 21:05 Neuro: Positive for weakness, numbness of right leg and left leg. 21:05 All other systems are negative. Exam: 19:40 ECG was reviewed by the Attending Physician. cp 21:10 Constitutional: The patient appears in no acute distress, alert, awake, cp non-diaphoretic, non-toxic, well developed, well nourished, obese. 21:10 Head/Face: Normocephalic, atraumatic. cp 21:10 Eyes: Periorbital structures: appear normal, Conjunctiva: normal, no exudate, no injection, Sclera: no appreciated abnormality, Lids and lashes: appear normal, bilaterally. 21:10 ENT: External ear(s): are unremarkable, Nose: is normal, Mouth: Lips: moist, Oral mucosa: moist, Posterior pharynx: Airway: no evidence of obstruction, patent. 21:10 Neck: ROM/movement: is normal, is supple, without pain, no range of motions limitations, no meningismus. 21:10 Chest/axilla: Inspection: normal, Palpation: is normal, no crepitus, no tenderness. 21:10 Cardiovascular: Rate: normal, Rhythm: regular, Edema: is not appreciated, JVD: is not appreciated. 21:10 Respiratory: the patient does not display signs of respiratory distress, Respirations: normal, no use of accessory muscles, no retractions, labored breathing, is not present, Breath sounds: are clear throughout, no decreased breath sounds, no stridor, no wheezing. 21:10 Abdomen/GI: Inspection: abdomen appears normal, Bowel sounds: active, all quadrants, Palpation: abdomen is soft and non-tender, in all quadrants. 21:10 Back: pain, that is moderate, of the low back area, ROM is painful, with all movement, Straight leg raises: of both lower extremities does not illicit pain. 21:10 Neuro: Orientation: to person, place \\T\\ time. Mentation: is normal, Motor: moves all fours, strength is normal, Sensation: light touch is decreased in the right leg and left leg, Gait: is steady, Deep tendon reflexes are 2+ (normal) in the right patellar, right Achilles, left patellar and left Achilles. Vital Signs: 19:33 BP 100 / 86; Pulse 106; Resp 22; Temp 99.0(T); Pulse Ox 98% on R/A; Weight 127.01 kg; sf1 Height 5 ft. 9 in. (175.26 cm); Pain 7/10; 21:04 BP 108 / 77; Pulse 98; Resp 24; Temp 99.6(O); Pulse Ox 98% on R/A; sm5 22:59 BP 114 / 64; Pulse 97; Resp 19; Pulse Ox 98% on R/A; sm5 19:33 Body Mass Index 41.35 (127.01 kg, 175.26 cm) sf1 MDM: 21:06 Patient medically screened. cp 22:00 Differential diagnosis: Herniated disc UTI, Bronchitis pneumonia. cp 22:31 Data reviewed: vital signs, nurses notes, radiologic studies, CT scan, plain films. cp Counseling: I had a detailed discussion with the patient and/or guardian regarding: the historical points, exam findings, and any diagnostic results supporting the discharge/admit diagnosis, lab results, radiology results, the need for outpatient follow up, for definitive care, a neurologist. Physician consultation: Cesario Tuttle MD was called at 22:32, was contacted at 22:32, regarding patient's condition, outpatient follow-up, next week, would like medications started, Gabapentin 100 mg bid. 08/28 20:01 Order name: COVID-19 SARS RT PCR (Document "Date of Onset" if Symptomatic); Complete tw5 Time: 21:13 08/28 21:13 Interpretation: Reviewed. 08/28 19:41 Order name: XRAY Chest Pa And Lat (2 Views); Complete Time: 21:13 [facility] 08/28 21:13 Order name: CT Lumbar Spine Wo Con; Complete Time: 22:20 cp 08/28 22:53 Order name: Urine Dipstick-Ancillary; Complete Time: 22:58 EDDE 08/28 22:58 Interpretation: Normal except: UKET 3+; UPROT 1+. 08/28 19:41 Order name: EKG - Nurse/Tech; Complete Time: 19:41 [facility] 08/28 22:26 Order name: Urine Dipstick-Ancillary (obtain specimen); Complete Time: 22:58 cp EC:40 Rate is 111 beats/min. Rhythm is regular. UT interval is normal. QRS interval is cp normal. QT interval is normal. Interpreted by me. Reviewed by me. Administered Medications: 21:21 Drug: Ketorolac 60 mg Route: IM; Site: right deltoid; sm5 23:00 Follow up: Response: Pain is decreased sm5 Disposition: 08/29 02:44 Co-signature as Attending Physician, Devyn Nguyen MD. 7 Disposition Summary: 08/28/21 22:38 Discharge Ordered Location: Home cp Problem: new cp Symptoms: have improved cp Condition: Stable cp Diagnosis - SARS-associated coronavirus as the cause of diseases classified elsewhere cp - Low back pain cp - Radiculopathy, lumbar region cp Followup: cp - With: Cesario Tuttle MD - When: 1 week - Reason: low back pain Discharge Instructions: - Discharge Summary Sheet cp - Acute Back Pain, Adult cp - Lumbosacral Radiculopathy cp - Back Exercises cp - COVID-19 cp - Things to Know about the COVID-19 Pandemic - [facility] cp - 10 Things You Can Do to Manage Your COVID-19 Symptoms at Home - [facility] cp - COVID-19: Quarantine vs. Isolation - [facility] cp - Prevent the Spread of COVID-19 if You Are Sick - [facility] cp Forms: - Medication Reconciliation Form cp - Thank You Letter cp - Antibiotic Education cp - Prescription Opioid Use cp Prescriptions: - Neurontin 300 mg Oral Capsule - take 1 capsule by ORAL route every 12 hours; 60 capsule; Refills: 0, Product cp Selection Permitted - Cyclobenzaprine 10 mg Oral Tablet - take 1 tablet by ORAL route every 8 hours As needed; 30 tablet; Refills: 0, cp Product Selection Permitted - Diclofenac Sodium 75 mg Oral Tablet Sustained Release - take 1 tablet by ORAL route 2 times per day; 30 tablet; Refills: 0, Product cp Selection Permitted - albuterol sulfate 90 mcg/actuation Inhalation HFA aerosol inhaler - inhale 1 puff by INHALATION route every 4-6 hours; 1 Inhaler; Refills: 0, cp Product Selection Permitted Signatures: Dispatcher [employer] Derrek Marquez PA PA cp Devyn Nguyen MD MD mh7 Yoly Felder, RN RN sm5 Arminda Lockwood RN RN sf1
[2021-08-28 22:53] LABS: Urine Blood Negative (Negative); Urine Glucose Negative (Negative); Urine Protein 1+ (Negative); Urine Specific Gravity >=1.030 (1.005-1.030)
[2021-08-28 23:05] VITALS: O2SAT 98
[2021-08-28 23:07] VITALS: TEMP 99.6
[2021-08-28 23:08] VITALS: BP 114/64
== END 2021-08-28 23:00 | disposition home or self-care (01) ==
LOC: ER 19:18
DX: U07.1 COVID-19 (principal); M54.16 Radiculopathy, lumbar region
CPT/HCPCS: 71046; 72131; 81003; 93005; 96372; 99284; U0003